=== PATIENT | female | born 1985 | race Caucasian/White ===

== ENCOUNTER 2017-04-16 04:59 | Emergency (ER) | payer OTHER ==
[~2017-04-16] VITALS: Ht 170.2 cm; Wt 57.2 kg
[2017-04-16 07:53] LABS: Basophils # (auto) 0.1 uL; Basophils % (auto) 0.6 % (0.0-2.0); Eosinophils # (auto) 0.2 uL; Eosinophils % (auto) 2.4 % (0.0-7.0); Hematocrit 41.6 % (36.0-46.0); Hemoglobin 13.7 g/dL (12.2-16.2); Lymphocytes # (auto) 2.2 uL; Lymphocytes % (auto) 26.4 % (10.0-50.0); Mean Corpuscular Hemoglobin 27.6 pg (28.0-32.0); Mean Corpuscular Hgb Conc. 32.8 g/dL (32.0-36.0); Mean Corpuscular Volume 84.3 fL (80.0-100.0); Monocytes # (auto) 0.6 uL; Monocytes % (auto) 7.1 % (0.0-12.0); Neutrophils # (auto) 5.4 uL; Neutrophils % (auto) 63.5 % (37.0-80.0); Platelet Count (auto) 277 10^3/uL (140-450); Red Blood Cells 4.94 10^6/uL (4.0-5.20); Red Cell Distribution Width 14.2 % (11.8-14.3); White Blood Cell 8.5 10^3/uL (4.4-10.8)
[2017-04-16 08:20] LABS: Albumin 3.4 g/dL (3.4-5.0); BUN/Creatinine Ratio 14.5; Bilirubin, Total 0.2 mg/dL (0.2-1.0); Calcium 8.7 mg/dL (8.5-10.1); Total Protein 8.5 g/dL (6.4-8.2)
[2017-04-16 08:37] LABS: Urine Bacteria FEW /hpf (None Seen); Urine Blood Negative /uL (Negative); Urine Mucus FEW (None Seen); Urine Specific Gravity 1.026 (1.001-1.035); Urine WBC <1 /hpf (0 - 5)
[2017-04-16] MEDS ORDERED: HYDROcodone-ACET 10/325MG TAB PO ONE (09:45)
[2017-04-16] MEDS ORDERED: cefTRIAXone W LIDOCAINE 1 GM IM IM ONE (09:45)
[2017-04-16 10:06] VITALS: BP 117/65
== END 2017-04-16 10:14 | disposition home or self-care (01) ==
LOC: ER 04:59
DX: N61.1 Abscess of the breast and nipple (principal); F11.10 Opioid abuse, uncomplicated; F17.210 Nicotine dependence, cigarettes, uncomplicated; Z88.0 Allergy status to penicillin; Z98.51 Tubal ligation status
CPT/HCPCS: 10060; 36415; 80053; 81001; 84702; 85025; 87077; 87186; 87205; 96372; 99284; J0696

== ENCOUNTER 2017-07-31 02:05 | Emergency (ER) | payer OTHER ==
[~2017-07-31] VITALS: Ht 172.7 cm; Wt 54.4 kg
[2017-07-31 02:11] VITALS: BP 144/96
[2017-07-31] MEDS ORDERED: HYDROcodone-ACET 10/325MG TAB PO ONE (03:30)
[2017-07-31] MEDS ORDERED: DOXYCYCLINE 100 MG TAB/CAP PO ONE (03:30)
== END 2017-07-31 03:39 | disposition left against medical advice (07) ==
LOC: EDBD 02:05 → ER 02:05
DX: K13.79 Other lesions of oral mucosa (principal); Z53.21 Procedure and treatment not carried out due to patient leaving prior to being seen by health care provider

== ENCOUNTER 2017-11-10 21:20 | Emergency (ER) | payer OTHER ==
[~2017-11-10] VITALS: Ht 170.2 cm; Wt 54.9 kg
[2017-11-10 23:02] LABS: Basophils # (auto) 0.1 uL; Basophils % (auto) 0.4 % (0.0-2.0); Eosinophils # (auto) 0 uL; Eosinophils % (auto) 0.1 % (0.0-7.0); Hematocrit 40.9 % (36.0-46.0); Hemoglobin 13.5 g/dL (12.2-16.2); Lymphocytes # (auto) 1.3 uL; Lymphocytes % (auto) 8.4 % (10.0-50.0); Mean Corpuscular Hemoglobin 28.2 pg (28.0-32.0); Mean Corpuscular Hgb Conc. 33.2 g/dL (32.0-36.0); Monocytes # (auto) 1.9 uL; Monocytes % (auto) 12.5 % (0.0-12.0); Neutrophils # (auto) 11.8 uL; Neutrophils % (auto) 78.6 % (37.0-80.0); Platelet Count (auto) 263 10^3/uL (140-450); Red Cell Distribution Width 13.7 % (11.8-14.3)
[2017-11-10 23:06] LABS: Urine Bacteria MANY /hpf (None Seen); Urine Blood 3+ /uL (Negative); Urine Mucus FEW (None Seen); Urine Specific Gravity 1.017 (1.001-1.035); Urine WBC 102 /hpf (0 - 5); Urine WBC Clumps PRESENT /hpf (None Seen)
[2017-11-10 23:20] LABS: Albumin 3.5 g/dL (3.4-5.0); Calcium 8.1 mg/dL (8.5-10.1); Potassium 3.8 mmol/L (3.5-5.1)
[2017-11-10 23:22] LABS: Bilirubin, Total 0.5 mg/dL (0.2-1.0); Total Protein 8.8 g/dL (6.4-8.2)
[2017-11-11] MEDS ORDERED: SODIUM CHLORIDE 0.9% 1,000 ML IV ONE ×2 (06:40)
[2017-11-11] MEDS ORDERED: KETOROLAC TROMETH 30 MG/ML 1ML VIAL IV ONE (06:45)
[2017-11-11] MEDS ORDERED: LEVOFLOXACIN 500MG 100 ML IV ONE (07:00)
[2017-11-11 10:34] VITALS: BP 124/47
== END 2017-11-11 10:50 | disposition home or self-care (01) ==
LOC: ER 21:20
DX: N39.0 Urinary tract infection, site not specified (principal); N20.0 Calculus of kidney; Z88.0 Allergy status to penicillin
CPT/HCPCS: 36415; 74176; 80053; 81001; 85025; 96365; 96375; 99285; J1885; J1956; J7030

== ENCOUNTER 2018-02-19 07:26 | Emergency (ER) | payer OTHER ==
[~2018-02-19] VITALS: Ht 172.7 cm; Wt 56.7 kg
[2018-02-19 07:32] VITALS: BP 126/80
== END 2018-02-19 08:39 | disposition home or self-care (01) ==
LOC: ER 07:26
DX: S10.93XA Contusion of unspecified part of neck, initial encounter (principal); Z88.0 Allergy status to penicillin; X58.XXXA Exposure to other specified factors, initial encounter; Y93.89 Activity, other specified; Y92.89 Other specified places as the place of occurrence of the external cause; Y99.8 Other external cause status

== ENCOUNTER 2018-05-13 02:35 | Emergency (ER) | payer OTHER ==
[~2018-05-13] VITALS: Ht 170.2 cm; Wt 59.0 kg
[2018-05-13] MEDS ORDERED: TETRACAINE HCL 0.5% OPTH(EYE) SOLN 4ML EACHEYE ONE (03:45)
[2018-05-13] MEDS ORDERED: FLUORESCEIN SOD 1 MG TEST STRIP EACHEYE ONE (03:45)
[2018-05-13] MEDS ORDERED: GENTAMICIN OPTH sol 0.3% 5ml EACHEYE ONE (03:45)
[2018-05-13 04:36] VITALS: BP 107/69
== END 2018-05-13 04:29 | disposition home or self-care (01) ==
LOC: ER 02:35
DX: H16.002 Unspecified corneal ulcer, left eye (principal); F12.90 Cannabis use, unspecified, uncomplicated; Z88.0 Allergy status to penicillin; Z98.51 Tubal ligation status

== ENCOUNTER 2018-07-09 00:47 | Emergency (ER) | payer OTHER | END 2018-07-09 00:58 | disposition left against medical advice (07) | LOC: ER 00:53 | DX: M79.603 Pain in arm, unspecified (principal); Z53.21 Procedure and treatment not carried out due to patient leaving prior to being seen by health care provider ==

== ENCOUNTER 2018-07-14 19:27 | Emergency (ER) | payer OTHER ==
[~2018-07-14] VITALS: Ht 170.2 cm; Wt 59.0 kg
[2018-07-15] MEDS ORDERED: DOXYCYCLINE 100 MG TAB/CAP PO ONE (07:15)
[2018-07-15] MEDS ORDERED: DOXYCYCLINE 100 MG TAB/CAP ONE (08:02)
[2018-07-15 08:34] VITALS: BP 112/72
== END 2018-07-15 08:33 | disposition home or self-care (01) ==
LOC: ER 19:27
DX: L03.114 Cellulitis of left upper limb (principal); F17.210 Nicotine dependence, cigarettes, uncomplicated; F14.10 Cocaine abuse, uncomplicated; Z98.51 Tubal ligation status; Z88.0 Allergy status to penicillin
CPT/HCPCS: 73200; 94761

== ENCOUNTER 2018-08-01 22:22 | Emergency (ER) | payer OTHER ==
[~2018-08-01] VITALS: Ht 167.6 cm; Wt 61.7 kg
[2018-08-01 22:42] VITALS: BP 97/64
== END 2018-08-02 00:33 | disposition left against medical advice (07) ==
LOC: ER 22:23
DX: R22.31 Localized swelling, mass and lump, right upper limb (principal); Z53.21 Procedure and treatment not carried out due to patient leaving prior to being seen by health care provider

== ENCOUNTER 2018-08-20 17:44 | Emergency (ER) | payer OTHER ==
[~2018-08-20] VITALS: Ht 172.7 cm; Wt 59.0 kg
[2018-08-20] MEDS ORDERED: SODIUM CHLORIDE 0.9% 1,000 ML IV ONE (20:00)
[2018-08-20 20:01] LABS: Urine WBC None Seen /hpf (0 - 5)
[2018-08-20 20:16] LABS: Basophils # (auto) 0.1 uL; Basophils % (auto) 0.8 % (0.0-2.0); Eosinophils # (auto) 0.2 uL; Hemoglobin 12.4 g/dL (12.2-16.2); Lymphocytes # (auto) 1.9 uL; Lymphocytes % (auto) 22.4 % (10.0-50.0); Mean Corpuscular Hemoglobin 27.1 pg (28.0-32.0); Mean Corpuscular Hgb Conc. 32.6 g/dL (32.0-36.0); Mean Corpuscular Volume 83.2 fL (80.0-100.0); Monocytes # (auto) 0.5 uL; Monocytes % (auto) 5.6 % (0.0-12.0); Neutrophils # (auto) 5.9 uL; Neutrophils % (auto) 69.2 % (37.0-80.0); Platelet Count (auto) 259 10^3/uL (140-450); Red Blood Cells 4.56 10^6/uL (4.0-5.20); Red Cell Distribution Width 14.7 % (11.8-14.3); White Blood Cell 8.5 10^3/uL (4.4-10.8)
[2018-08-20 20:22] LABS: Urine Bacteria MANY /hpf (None Seen); Urine Blood Negative /uL (Negative); Urine Mucus FEW (None Seen); Urine Specific Gravity 1.029 (1.001-1.035)
[2018-08-20 20:32] LABS: Alcohol, Urine < 3.0 mg/dL (0-5); Amphetamine Screen, Urine POSITIVE (NEGATIVE); Barbiturate Scree,Urine NEGATIVE (NEGATIVE); Benzodiazephine Screen, Urine NEGATIVE (NEGATIVE); Cannabinoid Screen, Urine NEGATIVE (NEGATIVE); Cocaine Screen, Urine NEGATIVE (NEGATIVE); Phencyclidine Screen, Urine NEGATIVE (NEGATIVE)
[2018-08-20 20:34] LABS: Albumin 2.7 g/dL (3.4-5.0); Anion Gap 7 (5-15); Blood Urea Nitrogen 10 mg/dL (7-18); Calcium 8.3 mg/dL (8.5-10.1); Carbon Dioxide 24 mmol/L (21-32); Chloride 103 mmol/L (98-107); Glucose 126 mg/dL (74-106); Potassium 3.8 mmol/L (3.5-5.1); Sodium 134 mmol/L (136-145)
[2018-08-20 20:37] LABS: Alanine Aminotransferase 19 U/L (13-56); Alkaline Phosphatase 93 U/L (45-117); Aspartate Aminotransferase 20 U/L (15-37); BUN/Creatinine Ratio 15.2; Bilirubin, Total 0.2 mg/dL (0.2-1.0); GFR African American 135 mL/min; GFR Non-African American 112 mL/min; Total Protein 8.3 g/dL (6.4-8.2)
[2018-08-20 20:39] LABS: Opiate Scree,Urine POSITIVE (NEGATIVE)
[2018-08-20 21:29] VITALS: BP 100/52
[2018-08-20] MEDS ORDERED: LORazepam 2MG/ML-1ML VIAL IM ONE (22:00)
== END 2018-08-20 22:17 | disposition home or self-care (01) ==
LOC: ER 17:47
DX: F11.23 Opioid dependence with withdrawal (principal); F15.93 Other stimulant use, unspecified with withdrawal; F17.210 Nicotine dependence, cigarettes, uncomplicated; F19.10 Other psychoactive substance abuse, uncomplicated; Z88.0 Allergy status to penicillin; Z98.51 Tubal ligation status
CPT/HCPCS: 36415; 80053; 80307; 80320; 81001; 84484; 85025; 96372; 99283; J2060

== ENCOUNTER 2018-09-05 23:29 | Emergency (ER) | payer OTHER ==
[~2018-09-05] VITALS: Ht 170.2 cm; Wt 68.5 kg
[2018-09-05 23:50] VITALS: BP 106/46
== END 2018-09-06 04:00 | disposition left against medical advice (07) ==
LOC: ER 23:33
DX: H57.12 Ocular pain, left eye (principal); Z53.21 Procedure and treatment not carried out due to patient leaving prior to being seen by health care provider

== ENCOUNTER 2019-04-16 18:42 | Emergency (ER) | payer OTHER ==
[~2019-04-16] VITALS: Ht 170.2 cm; Wt 59.4 kg
[2019-04-16] MEDS ORDERED: MAGNESIUM CITRATE SOLUTION 300 ML BTL PO ONE (21:30)
[2019-04-16] MEDS ORDERED: ONDANSETRON ODT 4 MG TAB PO ONE (21:30)
[2019-04-16] MEDS ORDERED: DOCUSATE SOD 100 MG CAP PO ONE (21:30)
[2019-04-16 22:32] VITALS: BP 136/78
== END 2019-04-16 22:57 | disposition home or self-care (01) ==
LOC: ER 18:44
DX: K59.00 Constipation, unspecified (principal); L02.415 Cutaneous abscess of right lower limb; F17.210 Nicotine dependence, cigarettes, uncomplicated; F11.10 Opioid abuse, uncomplicated; Z88.0 Allergy status to penicillin
CPT/HCPCS: 74018; 99284; Q0162

== ENCOUNTER 2020-04-21 09:58 | Emergency (ER) | payer OTHER ==
[~2020-04-21] VITALS: Ht 170.2 cm; Wt 59.4 kg
[2020-04-21 09:59] VITALS: BP 117/73
[2020-04-21] MEDS ORDERED: KETOROLAC TROMETH 60MG/2ML VIAL IM ONE (10:30)
== END 2020-04-21 12:08 | disposition home or self-care (01) ==
LOC: ER 09:58
DX: S40.851A Superficial foreign body of right upper arm, initial encounter (principal); S50.11XA Contusion of right forearm, initial encounter; Z88.0 Allergy status to penicillin; Z98.51 Tubal ligation status; W22.8XXA Striking against or struck by other objects, initial encounter; Y93.89 Activity, other specified; Y92.89 Other specified places as the place of occurrence of the external cause; Y99.8 Other external cause status
CPT/HCPCS: 73060; 93971; 96372; 99284; J1885

== ENCOUNTER 2020-04-28 09:00 | Emergency (ER) | payer OTHER ==
[~2020-04-28] VITALS: Ht 170.2 cm; Wt 59.9 kg
[2020-04-28 09:02] VITALS: BP 102/73
[2020-04-28] MEDS ORDERED: traMADol HCL 50 MG TAB PO ONE (09:45)
== END 2020-04-28 11:03 | disposition home or self-care (01) ==
LOC: ER 09:00
DX: S40.851A Superficial foreign body of right upper arm, initial encounter (principal); S10.95XA Superficial foreign body of unspecified part of neck, initial encounter; F17.210 Nicotine dependence, cigarettes, uncomplicated; Z88.0 Allergy status to penicillin; Z98.51 Tubal ligation status; W22.8XXA Striking against or struck by other objects, initial encounter; Y93.89 Activity, other specified; Y92.89 Other specified places as the place of occurrence of the external cause; Y99.8 Other external cause status

== ENCOUNTER 2020-12-05 01:44 | Emergency (ER) | payer OTHER ==
[~2020-12-05] VITALS: Ht 172.7 cm; Wt 61.2 kg
[2020-12-05 01:48] VITALS: BP 119/65
[2020-12-05] MEDS ORDERED: AZITHROMYCIN 250 MG TAB PO ONE (03:00)
[2020-12-05] MEDS ORDERED: cefTRIAXone SOD 1,000 MG VL IM ONE (03:00)
[2020-12-05 03:58] LABS: Urine Bacteria NONE SEEN /hpf (None Seen); Urine Blood Negative /uL (Negative); Urine Mucus FEW (None Seen); Urine Specific Gravity 1.025 (1.001-1.035); Urine WBC 9 /hpf (0 - 5)
[2020-12-05 04:13] LABS: Alcohol, Urine < 3.0 mg/dL (0-10); Amphetamine Screen, Urine POSITIVE (NEGATIVE); Barbiturate Scree,Urine NEGATIVE (NEGATIVE); Benzodiazephine Screen, Urine NEGATIVE (NEGATIVE); Cannabinoid Screen, Urine NEGATIVE (NEGATIVE); Cocaine Screen, Urine NEGATIVE (NEGATIVE); Opiate Scree,Urine NEGATIVE (NEGATIVE); Phencyclidine Screen, Urine NEGATIVE (NEGATIVE)
== END 2020-12-05 04:26 | disposition left against medical advice (07) ==
LOC: ER 01:46
DX: J02.9 Acute pharyngitis, unspecified (principal); N39.0 Urinary tract infection, site not specified; F15.10 Other stimulant abuse, uncomplicated; F17.210 Nicotine dependence, cigarettes, uncomplicated; Z20.2 Contact with and (suspected) exposure to infections with a predominantly sexual mode of transmission; Z32.02 Encounter for pregnancy test, result negative; Z98.51 Tubal ligation status; Z87.442 Personal history of urinary calculi
CPT/HCPCS: 80307; 81001; 81025; 96372; 99283; J0696

== ENCOUNTER 2021-05-03 06:51 | Emergency (ER) | payer OTHER ==
[~2021-05-03] VITALS: Ht 170.2 cm; Wt 63.5 kg
[2021-05-03 07:23] VITALS: BP 113/71
[2021-05-03] MEDS ORDERED: cefTRIAXone SOD 1,000 MG VL IM ONE (07:30)
[2021-05-03] MEDS ORDERED: methylPREDNISolone SOD SUCC 125 MG/2 ML VL IM ONE (07:30)
== END 2021-05-03 07:51 | disposition home or self-care (01) ==
LOC: ER 06:51
DX: J03.00 Acute streptococcal tonsillitis, unspecified (principal); F17.210 Nicotine dependence, cigarettes, uncomplicated; Z98.51 Tubal ligation status; Z87.442 Personal history of urinary calculi
CPT/HCPCS: 96372; 99284; J0696; J2930